=== PATIENT | female | born 1935 | race Caucasian/White ===

== ENCOUNTER → 2020-01-16 | Outpatient (CLI) | payer MEDICARE ==
[~2020-01-16] MED LIST: ASCO10004 PO; ASPI-515 PO; ENOX40SY4 SQ; ESTR0.9T PO; FOSI20TA7 PO; GADOTERATE 5 MMOL/10 ML VIAL ONE; HYDR-3240 PO; LEVO25TA4 PO; MELO15TA24 PO; OMEP40CA42 PO; ONDA4TAB10 PO; TRAM50TA2 PO; VITEYES PO
== END | disposition home or self-care (01) ==
LOC: RAD 08:29
PROVIDERS: ATTEND Ophthalmology
DX: E05.00 Thyrotoxicosis with diffuse goiter without thyrotoxic crisis or storm (principal); H50.21 Vertical strabismus, right eye; H50.22 Vertical strabismus, left eye; M62.89 Other specified disorders of muscle; M19.90 Unspecified osteoarthritis, unspecified site; M67.28 Synovial hypertrophy, not elsewhere classified, other site; J34.1 Cyst and mucocele of nose and nasal sinus; G31.9 Degenerative disease of nervous system, unspecified
CPT/HCPCS: 70543; 70553; A9575

== ENCOUNTER → 2020-09-24 | Outpatient (CLI) | payer MEDICARE ==
[~2020-09-24] MED LIST changes: +APIX2.5T PO; +ASCO100018 PO; -ASCO10004 PO; +ATOR-2 PO; -GADOTERATE 5 MMOL/10 ML VIAL ONE; +OMEP-110 PO; +REGADENOSON 0.4 MG/5 ML SYRINGE ONE
== END | disposition home or self-care (01) ==
LOC: CFH 12:55
PROVIDERS: ATTEND Internal Medicine Cardiovascular Disease
DX: I25.2 Old myocardial infarction (principal); R94.31 Abnormal electrocardiogram [ECG] [EKG]
CPT/HCPCS: 78452; 93017; A9502; J2785